=== PATIENT | male | born 1980 | race Caucasian/White ===

== ENCOUNTER → 2016-09-29 | Outpatient (CLI) | payer BC ==
[~2016-09-29] MED LIST: CALCTAB5 PO; DICY20TA35 PO; ESOM20CA PO; FLUO10CA48 PO; LORA-741 PO; MTR800 PO; RANI300T PO; VTMD PO
== END | disposition home or self-care (01) ==
LOC: C.RDSM 09:50
PROVIDERS: ATTEND Physical Medicine & Rehabilitation Sports Medicine
DX: M79.676 Pain in unspecified toe(s) (principal)

== ENCOUNTER 2017-04-05 09:54 | Emergency (ER) | payer BC ==
[~2017-04-05] VITALS: Ht 165.1 cm; Wt 76.8 kg
[~2017-04-05 09:54] MED LIST changes: -DICY20TA35 PO; -ESOM20CA PO; -FLUO10CA48 PO; -LORA-741 PO
[2017-04-05 09:59] VITALS: Ht 165.1 cm; Wt 76.8 kg
[2017-04-05] MEDS ORDERED: LORA-741 PO (10:23)
[2017-04-05] MEDS ORDERED: ESOM20CA PO (10:23)
[2017-04-05] MEDS ORDERED: DICY20TA35 PO (10:23)
[2017-04-05] MEDS ORDERED: FLUO10CA48 PO (10:23)
[2017-04-05 10:55] LABS: BASO % 0.4 %; BASO ABS # 0.02 K/uL (0-0.2); COMPLETE YES; EOS % 0.7 %; HEMATOCRIT 44.7 % (42-52); IG% 0.4 %; LYMPH % 31.8 %; LYMPH ABS # 1.74 K/uL (1.2-3.4); MEAN CELL VOLUME 88.9 fL (80-100); MEAN CORPUSCULAR HGB CONC 34.9 g/dl (32-36); MEAN PLATELET VOLUME 9.5 fL (7.4-10.4); MONO % 10.2 %; NEUT % 56.5 %; PLATELET COUNT 239 K/uL (130-400); RED BLOOD COUNT 5.03 M/uL (4.7-6.1); WHITE BLOOD COUNT 5.47 K/uL (4.8-10.8)
[2017-04-05 11:14] LABS: BUN/CREATININE RATIO 14.3 (10-20); CALCIUM 9.4 mg/dl (8.5-10.1); CREATININE 1.1 mg/dl (0.60-1.40); POTASSIUM 3.8 mmol/L (3.5-5.1)
--- NOTE | 2017-04-05 11:30 | DIAGNOSTIC IMAGING REPORT ---
LEFT RIBS UNILATERAL WITH PA CHEST CLINICAL HISTORY: left rib pain pain COMPARISON STUDY: None FINDINGS: Negative left ribs. Cortical margins are intact. Lungs are clear. Diaphragms smooth. No evidence pneumothorax. IMPRESSION: 1. Negative left ribs. 2. Negative chest. The above report was generated using voice recognition software. It may contain grammatical, syntax or spelling errors. Electronically signed by: Scottie Szymanski M.D. 04/05/2017 11:28 AM Dictated Date/Time: 04/05/2017 11:26 AM
[2017-04-05 11:35] VITALS: TEMP 36.7
[2017-04-05] MEDS ORDERED: HYDROCODONE/ACETAMOPHEN 5/325MG TAB PO STA (12:07)
[2017-04-05] MEDS ORDERED: OPTIRAY 320 IV PRN (12:45)
--- NOTE | 2017-04-05 14:03 | DIAGNOSTIC IMAGING REPORT ---
(CHEST FOR PE) ANGIO WITH CT DOSE: 430.30 mGycm HISTORY: 36 years-old Male with acute left-sided chest pain and elevated D dimer levels. TECHNIQUE: Multiple CTA images of the chest were obtained after the intravenous administration of 95 ml Optiray 320. Coronal and sagittal MIPS were obtained from the axial data set and were submitted for review. A dose lowering technique was utilized adhering to the principles of ALARA. COMPARISON: Chest radiograph of same day. FINDINGS: CTA: There is adequate opacification of the pulmonary arteries to the level of the subsegmental branches without convincing evidence of acute pulmonary embolism. Note is made of a bovine aortic arch without aneurysm or dissection. Heart size is normal. CT CHEST: No axillary or mediastinal adenopathy by CT size criteria. There is no pneumothorax or pleural effusion. Patchy groundglass opacities are present within lung bases suggesting atelectasis. There is minimal mosaic attenuation of the lung bases suggesting some air trapping. The imaged upper abdominal structures are normal. Cholecystectomy clips are noted. The osseous structures appear intact. Minimal multilevel endplate changes are noted. The ribs appear intact. IMPRESSION: 1. No acute cardiopulmonary process, specifically no acute aortic pathology or evidence of pulmonary thromboembolic disease. 2. Mild bibasilar atelectasis with areas of bibasilar air trapping. 3. Prior cholecystectomy. The above report was generated using voice recognition software. It may contain grammatical, syntax or spelling errors. Electronically signed by: Wallace Martin M.D. 04/05/2017 2:02 PM Dictated Date/Time: 04/05/2017 1:54 PM
--- NOTE | 2017-04-05 14:39 | EMERGENCY ROOM VISIT NOTE ---
History First contact with patient: 10:08 Chief Complaint: PAIN (GENERALIZED) Stated Complaint: ALL OVER PAIN, STARTED IN UPPER GUT,DIZZINESS History of Present Illness The patient is a 36 year old male who presents to the Emergency Room with complaints of pain over the left anterior lateral ribs which radiates to his back. The patient states that the pain started this morning. He describes it as a burning pain. It is not worse with breathing. The patient denies any known injury to the area. The patient states that while he was driving he got the pain in his ribs and felt dizzy and clammy. The patient states that he felt dizzy and weak. He took an Ativan at 9:30 without any relief. He states that he has chronic abdominal pain and in the past Ativan usually helps. He also took a Bentyl this morning but that was due to his abdominal cramping he had this morning. He does have a history of IBS. The patient denies any recent upper respiratory infection. The patient denies smoking. He denies any history of blood clots or any recent leg pain. Review of Systems 10 system review was performed and was negative unless stated otherwise history of present illness. Past Medical/Surgical History Medical Problems: (1) Seasonal allergies Family History Cancer Diabetes mellitus Gallbladder disease Social History Smoking Status: Never Smoker Alcohol Use: occasionally Drug Use: none Marital Status: single Housing Status: lives alone Occupation Status: employed Current/Historical Medications Scheduled Esomeprazole Magnesium (Nexium), 20 MG PO BID Fluoxetine (Prozac), 10 MG PO DAILY Scheduled PRN Dicyclomine Hcl (Bentyl), 20 MG PO UD PRN for ABDOMINAL CRAMPS Lorazepam (Ativan), 0.5 MG PO UD PRN for Anxiety Physical Exam Vital Signs Date Time Temp Pulse Resp B/P (MAP) Pulse Ox O2 Delivery O2 Flow Rate FiO2 04/05/17 12:42 66 16 143/80 100 Room Air 04/05/17 11:35 36.7 61 16 144/78 99 Room Air 04/05/17 09:59 36.6 83 18 140/77 99 Room Air Physical Exam GENERAL: 36-year-old white male appears in no acute distress. MENTAL Status: Alert and oriented 3. EYES: PERRLA, EOMs intact. No nystagmus noted. NECK: Supple, no lymphadenopathy noted. No carotid bruits noted. LUNGS: Clear auscultation without wheezes rales or rhonchi. CARDIAC: Regular rate and rhythm without murmur. Pulses is full and equal throughout. CHEST WALL: No gross bony deformity noted. Patient is nontender to palpation throughout. No erythema, rash noted. ABDOMEN: Positive bowel sounds all 4 quadrants. Soft, nontender to palpation without organomegaly or masses. Medical Decision & Procedures ER Provider Diagnostic Interpretation: LEFT RIBS UNILATERAL WITH PA CHEST CLINICAL HISTORY: left rib pain pain COMPARISON STUDY: None FINDINGS: Negative left ribs. Cortical margins are intact. Lungs are clear. Diaphragms smooth. No evidence pneumothorax. IMPRESSION: 1. Negative left ribs. 2. Negative chest. The above report was generated using voice recognition software. It may contain grammatical, syntax or spelling errors. Electronically signed by: Scottie Szymanski M.D. 04/05/2017 11:28 AM Dictated Date/Time: 04/05/2017 11:26 AM (CHEST FOR PE) ANGIO WITH CT DOSE: 430.30 mGycm HISTORY: 36 years-old Male with acute left-sided chest pain and elevated D dimer levels. TECHNIQUE: Multiple CTA images of the chest were obtained after the intravenous administration of 95 ml Optiray 320. Coronal and sagittal MIPS were obtained from the axial data set and were submitted for review. A dose lowering technique was utilized adhering to the principles of ALARA. COMPARISON: Chest radiograph of same day. FINDINGS: CTA: There is adequate opacification of the pulmonary arteries to the level of the subsegmental branches without convincing evidence of acute pulmonary embolism. Note is made of a bovine aortic arch without aneurysm or dissection. Heart size is normal. CT CHEST: No axillary or mediastinal adenopathy by CT size criteria. There is no pneumothorax or pleural effusion. Patchy groundglass opacities are present within lung bases suggesting atelectasis. There is minimal mosaic attenuation of the lung bases suggesting some air trapping. The imaged upper abdominal structures are normal. Cholecystectomy clips are noted. The osseous structures appear intact. Minimal multilevel endplate changes are noted. The ribs appear intact. IMPRESSION: 1. No acute cardiopulmonary process, specifically no acute aortic pathology or evidence of pulmonary thromboembolic disease. 2. Mild bibasilar atelectasis with areas of bibasilar air trapping. 3. Prior cholecystectomy. The above report was generated using voice recognition software. It may contain grammatical, syntax or spelling errors. Electronically signed by: Wallace Martin M.D. 04/05/2017 2:02 PM Dictated Date/Time: 04/05/2017 1:54 PM Laboratory Results 04/05/17 10:35 Red Blood Count 5.03, Mean Corpuscular Volume 88.9, Mean Corpuscular Hemoglobin 31.0, Mean Corpuscular Hemoglobin Concent 34.9, Mean Platelet Volume 9.5, Neutrophils (%) (Auto) 56.5, Lymphocytes (%) (Auto) 31.8, Monocytes (%) (Auto) 10.2, Eosinophils (%) (Auto) 0.7, Basophils (%) (Auto) 0.4, Neutrophils # (Auto ) 3.09, Lymphocytes # (Auto) 1.74, Monocytes # (Auto) 0.56, Eosinophils # (Auto ) 0.04, Basophils # (Auto) 0.02 04/05/17 10:35 Test 04/05/17 10:35 04/05/17 12:03 White Blood Count 5.47 K/uL (4.8-10.8) Red Blood Count 5.03 M/uL (4.7-6.1) Hemoglobin 15.6 g/dL (14.0-18.0) Hematocrit 44.7 % (42-52) Mean Corpuscular Volume 88.9 fL (80-100) Mean Corpuscular Hemoglobin 31.0 pg (25-34) Mean Corpuscular Hemoglobin Concent 34.9 g/dl (32-36) Platelet Count 239 K/uL (130-400) Mean Platelet Volume 9.5 fL (7.4-10.4) Neutrophils (%) (Auto) 56.5 % Lymphocytes (%) (Auto) 31.8 % Monocytes (%) (Auto) 10.2 % Eosinophils (%) (Auto) 0.7 % Basophils (%) (Auto) 0.4 % Neutrophils # (Auto) 3.09 K/uL (1.4-6.5) Lymphocytes # (Auto) 1.74 K/uL (1.2-3.4) Monocytes # (Auto) 0.56 K/uL (0.11-0.59) Eosinophils # (Auto) 0.04 K/uL (0-0.5) Basophils # (Auto) 0.02 K/uL (0-0.2) RDW Standard Deviation 40.9 fL (36.4-46.3) RDW Coefficient of Variation 12.7 % (11.5-14.5) Immature Granulocyte % (Auto) 0.4 % Immature Granulocyte # (Auto) 0.02 K/uL (0.00-0.02) Anion Gap 5.0 mmol/L (3-11) Est Creatinine Clear Calc Drug Dose 90.5 ml/min Estimated GFR () 101.0 Estimated GFR (Non- 87.1 BUN/Creatinine Ratio 14.3 (10-20) Calcium Level 9.4 mg/dl (8.5-10.1) Total Bilirubin 0.6 mg/dl (0.2-1) Direct Bilirubin 0.1 mg/dl (0-0.2) Aspartate Amino Transf (AST/SGOT) 13 U/L (15-37) Alanine Aminotransferase (ALT/SGPT) 28 U/L (12-78) Alkaline Phosphatase 83 U/L (45-117) Total Protein 7.7 gm/dl (6.4-8.2) Albumin 4.2 gm/dl (3.4-5.0) Lipase 127 U/L (73-393) Bedside D-Dimer > 450 ng/mlFEU (0-450) ED Course The patient was evaluated. IV access was obtained. CBC and differential, renal profile, LFTs and lipase levels were ordered. Point of care d-dimer was ordered. We have x-ray with PA chest was ordered. This was interpreted by the radiologist as above without any acute findings. The patient was given [place] 5/ 325 mg 2 tablets by mouth for pain. The patient refused the [place] and therefore the order was canceled. Labs are reviewed and were unremarkable. Pointing care d-dimer was elevated over [address] of the chest for PE was ordered and interpreted by the radiologist as above. No evidence of PE was seen. Mild bibasilar atelectasis. The patient was reevaluated and informed of the findings. The patient was discharged home in stable condition.. Medical Decision Differential diagnosis include pleuritic chest pain, pulmonary embolus, pneumonia, muscular strain, early shingles, rib fracture Medication Reconcilliation Current Medication List: was personally reviewed by me Blood Pressure Screening Patient's blood pressure: Elevated blood pressure Blood pressure disposition: Elevated BP felt to be situational Impression Primary Impression: Rib pain on left side Additional Impression: Mild basilar atelectasis of both lungs Departure Information Dispostion Home / Self-Care Condition GOOD Referrals Elias Bartholomew MD (PCP) Forms HOME CARE DOCUMENTATION FORM, IMPORTANT VISIT INFORMATION, WORK / SCHOOL INSTRUCTIONS Patient Instructions My Parse Additional Instructions [id number] pain medications as needed for pain. Observe closely for a rash in the area. If any rash appears to medical attention immediately to be placed on antivirals. Make sure you take in deep breaths intermittently throughout the day to prevent worsening atelectasis. If you experience any severe shortness of breath, chest pain return to ER immediately. Problem Qualifiers
[2017-04-05 14:50] VITALS: BP 120/72; PULSE 64; O2SAT 98
== END 2017-04-05 14:50 | disposition home or self-care (01) ==
LOC: C.EDB 09:55
DX: R07.81 Pleurodynia (principal); J98.11 Atelectasis; Z79.899 Other long term (current) drug therapy; Z80.9 Family history of malignant neoplasm, unspecified; Z83.3 Family history of diabetes mellitus; Z83.79 Family history of other diseases of the digestive system